=== PATIENT | female | born 1990 | race African-American/Black ===

== ENCOUNTER 2022-04-26 21:08 | Emergency (ER) | payer MEDICAID, SELFPAY ==
[2022-04-26 21:03] VITALS: BP 129/85; PULSE 88; RESP 16; TEMP 37; O2SAT 100
--- NOTE | 2022-04-26 21:48 | ED.PREGNANCY ---
HPI - General Chief complaint: Vaginal Bleeding Stated complaint: vag bleed, 16 wks Time Seen by Provider: 04/26/22 21:23 History of Present Illness HPI Narrative: Patient is a 31-year-old G4, P1 female at approximately 16 weeks gestation presenting with vaginal bleeding. Patient states that she was putting her son to bed when she felt a warm sensation in her underwear. She went to the bathroom and she was having vaginal bleeding. Patient initially was hoping it would resolve but it continued so she called EMS. She denies any pain or pressure. States that she had a small amount of bleeding earlier in the and received RhoGAM at that time. States that she had an ultrasound approximately 6 weeks ago which showed an IUP. States that she continues to have a small amount of vaginal bleeding. She denies chest pain, lightheadedness, shortness of breath, abdominal pain, vomiting, dysuria, leg swelling. Related Data Home Medications Medication Instructions Recorded Confirmed No Home Medications 04/26/22 04/26/22 Allergies Allergy/AdvReac Type Severity Reaction Status Date / Time No Known Allergies Allergy Verified 04/26/22 21:13 Review of Systems Review of Systems: All systems reviewed & are unremarkable except as noted in HPI and below Exam Narrative: GENERAL: Well-appearing, well-nourished, and in no acute distress. HEAD: Normocephalic, atraumatic. EYES: PERRLA and EOMI. ENT: Nares clear, no rhinorrhea or epistaxis. Mucous membranes moist. NECK: Supple. CHEST: Clear to auscultation. No respiratory distress. HEART: Regular rate and rhythm. No murmur heard. Normal peripheral pulses. ABDOMEN: Soft, nontender, gravid, normal active bowel sounds. : blood with large clot in vaginal vault, cervical os is closed EXTREMITIES: Normal range of motion. No edema. SKIN: Warm, dry, no rash. NEURO: No focal deficits. Alert and oriented x3. PSYCH: Normal mood and affect. Course Vital Signs Vital signs: Vital Signs Temperature 98.6 F 04/26/22 21:03 Pulse Rate 88 04/26/22 21:03 Respiratory Rate 16 04/26/22 21:03 Blood Pressure 129/85 04/26/22 21:03 Pulse Oximetry 100 04/26/22 21:03 Oxygen Delivery Room Air 04/26/22 21:03 Temperature 98.6 F 04/26/22 21:03 Pulse Rate 75 04/27/22 00:34 Respiratory Rate 22 H 04/27/22 00:34 Blood Pressure 104/58 L 04/27/22 00:34 Pulse Oximetry 100 04/27/22 00:34 Oxygen Delivery Room Air 04/26/22 21:03 MDM - OB/Uterine Contractions MDM Narrative Medical decision making narrative: Patient is a 31-year-old female presenting with vaginal bleeding in the setting of second trimester . Vitals within normal limits. Vaginal exam shows blood in the vaginal vault with a clot but the cervical os is closed. CBC with a hemoglobin of 11. Patient states that this is improved from her labs a month ago. Patient is Rh-. Will give a dose of RhoGAM. Discussed appropriate supportive care for threatened miscarriage. Patient has an appointment with her OB in 36 hours. Appropriate return precautions given. Patient voiced understanding and is agreeable with plan. Discharged in stable condition. Lab Data 04/26/22 21:46 Labs: Lab Results 04/26/22 04/26/22 04/26/22 Range/Units 21:46 21:46 21:46 WBC 7.0 (4.5-10.0) K/mm3 RBC 3.81 L (4.2-5.4) M/mm3 Hgb 11.0 L (12.0-15.0) g/dL Hct 33.6 L (37.0-47.0) % MCV 88.2 (80-100) fl MCH 28.9 (26-34) pg MCHC 32.7 (32-36) g/dl RDW 13.2 (11.5-14.5) % Plt Count 222 (150-375) k/mm3 MPV 11.4 H (7.4-10.4) fl Immature Gran % (Auto) 0.4 (0-0.5) % Neut % (Auto) 64.1 (45.5-73.1) % Lymph % (Auto) 29.2 (18.3-44.2) % Dane % (Auto) 4.4 (2.6-8.5) % Eos % (Auto) 1.6 (0-4.4) % Baso % (Auto) 0.3 (0.2-1.2) % Lymph # (Auto) 2.05 (0.9-3.2) K/mm3 Dane # (Auto) 0.3 (0.1-0.6) K/mm3 Eos # (Auto) 0.1
[2022-04-26 21:51] LABS: Basophils Percent Auto 0.3 % (0.2-1.2); Eosinophils Absolute Auto 0.1 K/mm3 (0-0.3); Eosinophils Percent Auto 1.6 % (0-4.4); Hematocrit 33.6 % (37.0-47.0); Immature Granulocyte Absolute 0.03 K/mm3 (0.00-0.031); Immature Granulocyte Percent A 0.4 % (0-0.5); Lymphocytes Absolute Auto 2.05 K/mm3 (0.9-3.2); Lymphocytes Percent Auto 29.2 % (18.3-44.2); Mean Corpuscular HGB Conc 32.7 g/dl (32-36); Mean Corpuscular Hemoglobin 28.9 pg (26-34); Mean Corpuscular Volume 88.2 fl (80-100); Mean Platelet Volume 11.4 fl (7.4-10.4); Monocytes Absolute Auto 0.3 K/mm3 (0.1-0.6); Monocytes Percent Auto 4.4 % (2.6-8.5); Neutrophils Absolute Auto 4.5 K/mm3 (1.3-6.7); Neutrophils Percent Auto 64.1 % (45.5-73.1); Platelet Count Result 222 k/mm3 (150-375); Red Blood Count 3.81 M/mm3 (4.2-5.4); Red Cell Distribution Width 13.2 % (11.5-14.5)
[2022-04-26 22:39] VITALS: BP 102/55; PULSE 85
[2022-04-26 22:41] VITALS: BP 110/65; PULSE 89
[2022-04-26 22:42] VITALS: BP 105/73; PULSE 90
[2022-04-26 22:53] VITALS: BP 105/73; PULSE 90; RESP 20; O2SAT 100
[2022-04-27] MEDS: RHO(D) IMMUNE GLOBULIN 300 MCG/2 ML SYRINGE IM (00:25)
[2022-04-27 00:34] VITALS: BP 104/58; PULSE 75; RESP 22; O2SAT 100
== END 2022-04-27 00:35 | disposition home or self-care (01) ==
PROVIDERS: Emergency Provider Emergency Medicine
DX: O20.0 Threatened abortion (principal); Z3A.16 16 weeks gestation of pregnancy
CPT/HCPCS: 36415; 84702; 85025; 85461; 86850; 86880; 86900; 86901; 86902; 90384; 96372; 99284; J2790